=== PATIENT | male | born 1960 | race Caucasian/White ===

== ENCOUNTER 2019-01-06 10:11 | Emergency (ER) | payer OTHER ==
[~2019-01-06] VITALS: Ht 177.8 cm; Wt 120.0 kg
[2019-01-06] MEDS ORDERED: ACETAMINOPHEN 325MG TABLET PO ONE (11:15)
[2019-01-06 12:00] VITALS: BP 128/78
== END 2019-01-06 12:05 | disposition home or self-care (01) ==
LOC: ER 10:11
DX: M25.532 Pain in left wrist (principal); Z91.81 History of falling
CPT/HCPCS: 29125; 71045; 73030; 73100; 99283